=== PATIENT | female | born 1995 | race Hispanic/Latino ===

== ENCOUNTER 2024-10-14 06:34 | Emergency (ER) | payer OTHER ==
[2024-10-14] MEDS ORDERED: Famotidine/PF 20 mg/2ml Vial ONE (06:47)
[2024-10-14] MEDS ORDERED: diphenhydrAMINE 50 MG/ML VIAL ONE (06:47)
== END 2024-10-14 07:43 | disposition home or self-care (01) ==
LOC: CSHERS 06:34
DX: J02.9 Acute pharyngitis, unspecified (principal)
CPT/HCPCS: 87081; 87428; 87430; 96374; 96375; J1200; J1308; J2919